=== PATIENT | male | born 1995 | race Caucasian/White ===

== ENCOUNTER 2018-06-13 19:17 | Emergency (ER) | payer BC, SELFPAY ==
[2018-06-13 19:52] VITALS: BP 152/91; PULSE 127; PULSE 129; RESP 17; RESP 18; TEMP 37.3; O2SAT 95; BMI 33.3
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
[2018-06-13 21:03] VITALS: PULSE 107; RESP 17; TEMP 36.8; O2SAT 97
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
[2018-06-13 23:15] VITALS: BP 143/91; PULSE 91; RESP 15; O2SAT 98
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
[2018-06-13] MEDS: Ibuprofen 600 MG Tablet PO (23:28)
== END 2018-06-13 23:31 | disposition home or self-care (01) ==
PROVIDERS: Emergency Provider Emergency Medicine; Family Provider Pediatrics; PCP Pediatrics
DX: S40.011A Contusion of right shoulder, initial encounter (principal); S70.01XA Contusion of right hip, initial encounter; V03.00XA Pedestrian on foot injured in collision with car, pick-up truck or van in nontraffic accident, initial encounter; Y93.89 Activity, other specified; Y92.410 Unspecified street and highway as the place of occurrence of the external cause
CPT/HCPCS: 71046; 73030; 99284